=== PATIENT | female | born 1980 | race Caucasian/White ===

== ENCOUNTER 2020-11-10 09:56 | Outpatient (REF) | payer OTHER, SELFPAY ==
[2020-11-10 14:18] LABS: CT PCR NOT DETECTED (Not Detect.); NG PCR NOT DETECTED (Not Detect.)
[2020-11-11 13:28] LABS: BV Int Neg Control Negative (Negative); BV Int Pos Control Positive (Positive)
[2020-11-14 16:47] LABS: HPV mRNA E6/E7 rflx Not Detected (Not Detected)
== END 2020-11-10 09:57 | disposition home or self-care (01) ==
LOC: HO.LAB 09:56
PROVIDERS: PCP Internal Medicine; Visit Provider Advanced Practice Midwife
DX: Z01.411 Encounter for gynecological examination (general) (routine) with abnormal findings (principal); Z11.51 Encounter for screening for human papillomavirus (HPV); N76.0 Acute vaginitis; B96.89 Other specified bacterial agents as the cause of diseases classified elsewhere; Z20.2 Contact with and (suspected) exposure to infections with a predominantly sexual mode of transmission
CPT/HCPCS: 36415; 87480; 87491; 87510; 87591; 87624; 87660; 88142

== ENCOUNTER 2020-11-24 11:53 | Outpatient (REF) | payer OTHER, SELFPAY ==
[2020-11-24 13:32] LABS: Syphilis Screen Nonreactive (Nonreactive)
[2020-11-25 09:31] LABS: HIV AB/AG Nonreactive (Nonreactive); HIV Num 1 0.05 S/CO (0.00-0.99); ~HepC Num1 0.09 S/CO (0.00-0.79); ~Hepatitis C Antibody Nonreactive (Nonreactive)
[2020-11-25 09:41] LABS: HBsAGNum1 0.37 S/CO (0.00-0.99); Hepatitis B Surface Antigen Negative (Negative)
== END 2020-11-24 11:54 | disposition home or self-care (01) ==
LOC: HO.LAB 11:53
PROVIDERS: PCP Internal Medicine; Visit Provider Advanced Practice Midwife
DX: Z01.419 Encounter for gynecological examination (general) (routine) without abnormal findings (principal); N76.0 Acute vaginitis; B96.89 Other specified bacterial agents as the cause of diseases classified elsewhere; Z20.2 Contact with and (suspected) exposure to infections with a predominantly sexual mode of transmission
CPT/HCPCS: 36415; 86780; 86803; 87340; 87389

== ENCOUNTER → 2021-11-27 09:05 | Outpatient (BNVA) | payer OTHER, SELFPAY | PROVIDERS: Visit Provider Advanced Practice Midwife | DX: O09.522 Supervision of elderly multigravida, second trimester (principal); Z32.01 Encounter for pregnancy test, result positive; Z36.3 Encounter for antenatal screening for malformations; Z3A.16 16 weeks gestation of pregnancy | CPT/HCPCS: 81025 ==

== ENCOUNTER 2021-12-14 09:52 | Outpatient (REF) | payer OTHER, MEDICAID, SELFPAY ==
--- NOTE | ~2021-12-14 | US_ITS ---
EXAMINATION: US OBSTETRICAL CLINICAL INFORMATION: 41-year-old at 19.2 weeks of gestation AMA Insufficient care COMPARISON: None in this TECHNIQUE: Real-time transabdominal ultrasound was performed using C1-5 megahertz transducer. FINDINGS: A single, active, fetus is seen in vertex presentation. The placenta is posterior without previa, and the amniotic fluid volume is wnl. MEASUREMENTS: 1. Biparietal Diameter: 4.6 cm; 19.6 wks 2. Occipital Frontal Diameter: 6.1 cm 3. Head Circumference: 17.3 cm; 20.0 wks 4. Abdominal Circumference: 14.3 cm; 19.5 wks 5. Femur Length: 3.0 cm; 19.3 wks 6. Humerus Length: 3.0 cm; 19.6 wks 7. Tibia Length: 2.6 cm; 19.2 wks 8. Ulna Length: 2.7 cm; 20.1 wks 9. Lateral ventricle: 0.43 cm 10. Cerebellum: 2.0 cm; 20.2 wks 11. Cisterna Magna: 0.5 cm 12. Nuchal Fold: 4.7 mm 13. Heart Rate: 133 beats per minute Rt ovary: normal Lt ovary: normal Cervical length 4.1 cm on T/A. GESTATIONAL AGE: 1. Established GA: 19.2 wks 2. GA from [facility]: 19.6 wks ESTIMATED DATE OF DELIVERY: 1. Established MARIAN: 05/08/2022 2. MARIAN from [facility]: 05/04/2022 ANATOMY: The visualized anatomy includes but not limited to: 1. Cranium: Normal 2. Intracranial anatomy: cavum septum pellucidi, lateral ventricles, choroid plexus, cerebellum, posterior fossa, third and fourth ventricles. 3. face: orbits, lip/palate, profile, nasal bone 4. Heart: four-chamber view of the heart, ventricular septum, foramen ovale, pulmonary vein, left and right outflow tracts, three-vessel view, 3 vessel trachea view, aortic and ductal arches, situs.. 5. Diaphragm: Normal 6. Abdominal wall: Normal 7. Cord Insertion: Normal 8. Spine: Cervical, thoracic, lumbar, sacral. 9. Stomach: Normal size and shape 10. Right Kidney: Normal 11. Left Kidney: Normal 12. 3 vessel cord: Normal 13. Upper extremity: Open hands, fifth digit. 14. Lower extremity: Tibia, fibula, bilateral feet. 15. Bladder: Normal 16. Genitalia: Female, patient not aware A noninvasive testing was ordered today. US/US OB /maternal detail IMPRESSION: 1. Single, living, intrauterine with appropriate biometry. 2. Normal survey DISCUSSION: I reviewed today's ultrasound findings. We discussed the limitations of ultrasound in diagnosing aneuploidy and other congenital abnormalities. I reviewed the differences between screening test and diagnostic test. Amniocentesis was discussed and declined. She was informed that the baseline incidence of congenital abnormalities is approximately 3-5%. Not all these conditions are diagnosable in utero. RECOMMENDATIONS: 1. Suggest a follow-up in approximately 6 weeks (scheduled) Thank you for allowing me to participate in her care. Total time 30 minutes. The time spent was devoted to counseling the patient about the disease and diagnosis, coordinating care including reviewing her records, pertinent lab data and studies, as well as discussing diagnostic evaluation and workup, plan therapeutic interventions and future disposition of care. This includes any additional research needed to obtain further information in formulating the plan of care of this patient. This note was generated with a voice recognition program. Please excuse any errors which may have been overlooked during my review of this note. Sometimes these errors may affect the content or meaning of a given sentence.
== END 2021-12-14 09:53 | disposition home or self-care (01) ==
LOC: HO.US 09:52
PROVIDERS: Visit Provider Advanced Practice Midwife
DX: Z36.3 Encounter for antenatal screening for malformations (principal); O09.522 Supervision of elderly multigravida, second trimester; Z3A.19 19 weeks gestation of pregnancy
CPT/HCPCS: 76811; 99212

== ENCOUNTER 2022-01-03 15:17 | Outpatient (REF) | payer OTHER, MEDICAID, SELFPAY ==
[2022-01-04 18:13] LABS: CT PCR NOT DETECTED (Not Detect.); NG PCR NOT DETECTED (Not Detect.)
== END 2022-01-03 15:18 | disposition home or self-care (01) ==
LOC: HO.LAB 15:17
PROVIDERS: PCP Internal Medicine; Visit Provider Advanced Practice Midwife
DX: O09.522 Supervision of elderly multigravida, second trimester (principal); Z3A.22 22 weeks gestation of pregnancy
CPT/HCPCS: 81003; 87491; 87591; 99212

== ENCOUNTER 2022-01-18 14:03 | Outpatient (REF) | payer OTHER, MEDICAID, SELFPAY ==
--- NOTE | ~2022-01-18 | US_ITS ---
EXAMINATION: OBSTETRICAL ULTRASOUND, Follow up HISTORY: 41-year-old at the 24.2 weeks of gestation AMA Size date discrepancy COMPARISON: 12/14/2021 TECHNIQUE: Real time transabdominal imaging with color and M-mode Doppler. PRESENTATION: Breech PLACENTA LOCATION: Posterior without previa AMNIOTIC FLUID: JUNE 13.0 cm MEASUREMENTS: 1. Biparietal Diameter: 5.9 cm; 24.1 wks 2. Head Circumference: 22.9 cm; 25.0 wks 3. Abdominal Circumference: 21.2 cm; 25.5 wks 4. Femur Length: 4.3 cm; 24.1 wks 5. Heart Rate: 147 beats per minute WEIGHT: EFW: 752 grams (1 lbs 11 oz) -- 71 %. GESTATIONAL AGE: 1. Established GA: 24.2 wks 2. GA from [facility]: 24.6 wks ESTIMATED DATE OF DELIVERY: 1. Established MARIAN: 05/08/2022 2. MARIAN from [facility]: 05/04/2022 US/US OB follow up IMPRESSION: 1. A single active fetus is in breech presentation 2. Size equals dates 3. Normal amniotic fluid volume I reviewed today's findings and discussed the limitations of ultrasound and estimating weights. She is to have 1 hour GLT today. Suggest a repeat growth in approximately 4 weeks for DIANA. Thank you very much for this referral. This note was generated with a voice recognition program. Please excuse any errors which may have been overlooked during my review of this note. Sometimes these errors may affect the content or meaning of a given sentence.
== END 2022-01-18 14:04 | disposition home or self-care (01) ==
LOC: HO.US 14:03
PROVIDERS: Visit Provider Advanced Practice Midwife
DX: O09.522 Supervision of elderly multigravida, second trimester (principal); O26.842 Uterine size-date discrepancy, second trimester; Z3A.24 24 weeks gestation of pregnancy
CPT/HCPCS: 76816

== ENCOUNTER → 2022-01-31 15:18 | Outpatient (BNVA) | payer OTHER, MEDICAID, SELFPAY | PROVIDERS: PCP Internal Medicine; Visit Provider Advanced Practice Midwife | DX: O09.522 Supervision of elderly multigravida, second trimester (principal); Z3A.26 26 weeks gestation of pregnancy | CPT/HCPCS: 99212 ==

== ENCOUNTER 2022-02-13 16:32 | Outpatient (REF) | payer OTHER, MEDICAID, SELFPAY | END 2022-02-13 16:33 | disposition home or self-care (01) | LOC: HO.LAB 16:32 | PROVIDERS: PCP Internal Medicine; Visit Provider Advanced Practice Midwife | DX: Z13.89 Encounter for screening for other disorder (principal) ==

== ENCOUNTER 2022-02-14 16:16 | Outpatient (REF) | payer OTHER, MEDICAID, SELFPAY ==
[2022-02-14 17:49] LABS: Hematocrit 30.7 % (37.0-47.0); Hemoglobin 10.8 g/dl (12.0-16.0); Mean Corpuscular HGB Conc 35.2 g/dl (31.0-35.0); Mean Corpuscular Hemoglobin 31.9 pg (27.0-33.0); Mean Corpuscular Volume 90.6 fL (80.0-98.0); Mean Platelet Volume 9.3 fL (9.4-12.3); Platelet Count 261 X10*3/uL (160-400); Red Blood Count 3.39 X10*6/uL (4.20-5.50); Red Cell Distribution Width 12.8 % (11.0-16.0); White Blood Count 9.5 X10*3/uL (4.8-10.8)
[2022-02-14 18:06] LABS: Glucose 1 Hour PP 50gm Dose 102 mg/dL (60-140)
[2022-02-14 18:14] LABS: Amphetamine Screen Urine Not Detected (Not Detect); Barbiturates, Urine Not Detected (Not Detect); Benzodiazepines Screen Urine Not Detected (Not Detect); Cannabinoid Screen Urine Not Detected (Not Detect); Cocaine Screen Urine Not Detected (Not Detect); Fentanyl, urine Not Detected (Not Detect); Opiate Screen Urine Not Detected (Not Detect); Phencyclidine Screen Urine Not Detected (Not Detect)
[2022-02-15 07:47] LABS: HBsAGNum1 0.14 S/CO (0.00-0.99); HIV AB/AG Nonreactive (Nonreactive); HIV Num 1 0.08 S/CO (0.00-0.99); Hepatitis B Surface Antigen Negative (Negative); ~HepC Num1 0.08 S/CO (0.00-0.79); ~Hepatitis C Antibody Nonreactive (Nonreactive)
[2022-02-15 07:48] LABS: Syphilis Screen Nonreactive (Nonreactive)
[2022-02-16 05:12] LABS: Rubella IgG Antibody 1.81 Index
== END 2022-02-14 16:17 | disposition home or self-care (01) ==
LOC: HO.LAB 16:16
PROVIDERS: PCP Internal Medicine; Visit Provider Advanced Practice Midwife
DX: O09.529 Supervision of elderly multigravida, unspecified trimester (principal)
CPT/HCPCS: 80307; 85027; 86762; 86780; 86787; 86803; 86850; 86900; 87086; 87340; 87389

== ENCOUNTER 2022-03-08 12:32 | Outpatient (REF) | payer OTHER, MEDICAID, SELFPAY ==
--- NOTE | ~2022-03-08 | US_ITS ---
EXAMINATION: OBSTETRICAL ULTRASOUND, Follow up HISTORY: 41-year-old 31.2 weeks of gestation Size date discrepancy COMPARISON: 01/18/2022 TECHNIQUE: Real time transabdominal imaging with color and M-mode Doppler. PRESENTATION: Vertex PLACENTA LOCATION: Posterior without previa AMNIOTIC FLUID: JUNE: 11.7 cm MEASUREMENTS: 1. Biparietal Diameter: 7.8 cm; 31.2 wks 2. Head Circumference: 30.5 cm; 34.0 wks 3. Abdominal Circumference: 27.7 cm; 31.6 wks 4. Femur Length: 5.8 cm; 30.2 wks 5. Heart Rate: 144 beats per minute WEIGHT: EFW: 1774 grams (3 lbs 15 oz) -- 44 %. BIOPHYSICAL PROFILE: Motion: 2 Tone: 2 Breathin Amniotic Fluid: 2 Total score: 8/8 GESTATIONAL AGE: 1. Established GA: 31.2 wks 2. GA from [facility]: 31.6 wks ESTIMATED DATE OF DELIVERY: 1. Established MARIAN: 05/08/2022 2. MARIAN from [facility]: 05/04/2022 US/US OB follow up IMPRESSION: 1. A single active fetus is in vertex presentation 2. Size equals dates 3. Reassuring biophysical profile and normal amniotic fluid index Thank you very much for this referral.
== END 2022-03-08 12:33 | disposition home or self-care (01) ==
LOC: HO.US 12:32
PROVIDERS: Visit Provider Advanced Practice Midwife
DX: O09.523 Supervision of elderly multigravida, third trimester (principal); O23.43 Unspecified infection of urinary tract in pregnancy, third trimester; O99.013 Anemia complicating pregnancy, third trimester; Z3A.31 31 weeks gestation of pregnancy
CPT/HCPCS: 76816; 87086; 99212

== ENCOUNTER 2022-04-11 15:45 | Outpatient (REF) | payer OTHER, MEDICAID, SELFPAY ==
[2022-04-12 04:15] LABS: CT PCR NOT DETECTED (Not Detect.); NG PCR NOT DETECTED (Not Detect.)
[2022-04-12 13:08] LABS: BV Int Neg Control Negative (Negative); BV Int Pos Control Positive (Positive)
== END 2022-04-11 15:46 | disposition home or self-care (01) ==
LOC: HO.LAB 15:45
PROVIDERS: Visit Provider Advanced Practice Midwife
DX: O09.523 Supervision of elderly multigravida, third trimester (principal); Z11.3 Encounter for screening for infections with a predominantly sexual mode of transmission; Z3A.36 36 weeks gestation of pregnancy; Z79.899 Other long term (current) drug therapy
CPT/HCPCS: 87081; 87480; 87491; 87510; 87591; 87660; 99212

== ENCOUNTER → 2022-04-16 15:07 | Outpatient (BNVA) | payer OTHER, MEDICAID, SELFPAY | PROVIDERS: PCP Internal Medicine; Visit Provider Advanced Practice Midwife | DX: O09.523 Supervision of elderly multigravida, third trimester (principal); Z3A.36 36 weeks gestation of pregnancy | CPT/HCPCS: 59025; 99212 ==

== ENCOUNTER → 2022-04-17 16:21 | Outpatient (BNVA) | payer OTHER, MEDICAID, SELFPAY | PROVIDERS: PCP Internal Medicine; Visit Provider Advanced Practice Midwife | DX: Z34.93 Encounter for supervision of normal pregnancy, unspecified, third trimester (principal); Z23 Encounter for immunization | CPT/HCPCS: 90471; 90715 ==

== ENCOUNTER 2022-04-19 15:08 | Outpatient (REF) | payer OTHER, MEDICAID, SELFPAY ==
--- NOTE | ~2022-04-19 | US_ITS ---
EXAMINATION: US OBSTETRICAL FOLLOW UP WITH BIOPHYSICAL PROFILE CLINICAL INFORMATION: Z34.93 - Encounter for supervision of normal , unspecified COMPARISON: Obstetrical ultrasound 03/08/2022, 01/18/2022, 12/14/2021. TECHNIQUE: Real time transabdominal imaging with color and M-mode Doppler. POSITION: Cephalic PLACENTA: Posterior AMNIOTIC FLUID INDEX: 12.4 cm MEASUREMENTS: The initial dating ultrasound dated provided an estimated date of delivery of 05/04/2022. This would project today to a of 38 weeks 6 days. biometric measurements are as follows: Biparietal Diameter: 9.3 cm (37 weeks 6 days) Occipital Frontal Diameter: 11.2 cm (37 weeks 3 days) Head Circumference: 32.9 cm (37 weeks 4 days) Abdominal Circumference: 32.5 cm (36 weeks 4 days) Femur Length: 6.9 cm (35 weeks 3 days) The standard deviation for the above measurements is +/- 3 weeks. ESTIMATED WEIGHT: The EFW is 2934 grams +/- 428 grams (6 lbs 7 oz +/- 15 oz). This is at the 35th percentile. BIOPHYSICAL PROFILE: Biophysical profile is performed over 30 minutes with assessment of breathing, gross body movement, tone, and qualitative amniotic fluid volume. Each matrix is scored 0 or 2, depending if the metric is present. Maximum total score possible is 8. Motion: 2 Tone: 2 Breathin Amniotic Fluid: 2 Total score: 8 HR: 139 bpm US/US OB biophysical profile IMPRESSION: 1. Single intrauterine gestation in cephalic position with posterior placenta. 2. EFW: 2934 grams +/- 428 grams (6 lbs 7 oz +/- 15 oz). This is at the 35th percentile. 3. JUNE: 12.4 cm. 4. BPP score: 8 (scale 0-8).
== END 2022-04-19 15:09 | disposition home or self-care (01) ==
LOC: HO.US 15:08
PROVIDERS: Visit Provider Advanced Practice Midwife
DX: Z36.3 Encounter for antenatal screening for malformations (principal); O09.523 Supervision of elderly multigravida, third trimester; Z3A.38 38 weeks gestation of pregnancy
CPT/HCPCS: 76819

== ENCOUNTER → 2022-04-23 14:38 | Outpatient (BNVA) | payer OTHER, MEDICAID, SELFPAY | PROVIDERS: PCP Internal Medicine; Visit Provider Obstetrics & Gynecology | DX: O09.523 Supervision of elderly multigravida, third trimester (principal); Z3A.37 37 weeks gestation of pregnancy | CPT/HCPCS: 59025; 99212 ==

== ENCOUNTER 2022-04-26 14:36 | Outpatient (REF) | payer OTHER, MEDICAID, SELFPAY ==
--- NOTE | ~2022-04-26 | US_ITS ---
EXAMINATION: US OBSTETRICAL (BIOPHYSICAL PROFILE) CLINICAL INFORMATION: Size/date discrepancy. COMPARISON: Ultrasound of the 05-09 TECHNIQUE: Ultrasound of the pelvis is performed. Biophysical profile is performed over 30 minutes with assessment of breathing, gross body movement, tone, and qualitative amniotic fluid volume. Each matrix is scored 0 or 2, depending if the metric is present. Maximum total score possible is 8. Examination is not intended to assess for anomalies. FINDINGS: POSITION: Cephalic PLACENTA: Posterior. AMNIOTIC FLUID INDEX: 17.50 cm CARDIAC ACTIVITY: 119 beats per minute BIOPHYSICAL PROFILE: Motion: 2 Tone: 2 Breathin Amniotic Fluid: 2 Total score: 8/8 US/US OB biophysical profile IMPRESSION: 1. Single intrauterine gestation in cephalic position with posterior placenta. 2. Total biophysical score is 8 (scale 0-8). 3. Amniotic fluid index 17.50 cm. 4. cardiac activity 119 beats per minute.
== END 2022-04-26 14:37 | disposition home or self-care (01) ==
LOC: HO.US 14:36
PROVIDERS: Visit Provider Advanced Practice Midwife
DX: O09.523 Supervision of elderly multigravida, third trimester (principal); Z36.3 Encounter for antenatal screening for malformations
CPT/HCPCS: 76819